=== PATIENT | female | born 1995 | race Caucasian/White ===

== ENCOUNTER 2021-02-06 20:37 | Emergency (ER) | payer OTHER ==
[~2021-02-06] VITALS: Ht 170.2 cm; Wt 118.2 kg
[~2021-02-06 20:37] MED LIST: HYDR-4061 PO
[2021-02-06] MEDS ORDERED: LORazepam 1 MG TABLET PO ONE (21:00)
[2021-02-06] MEDS ORDERED: PB/HYOSCY/ATR/SCOP/LIDO/MAALOX 55 ML BOTTLE PO ONE (21:00)
[2021-02-06 22:26] VITALS: BP 132/64
== END 2021-02-06 22:24 | disposition home or self-care (01) ==
LOC: EMS 20:39
DX: K21.9 Gastro-esophageal reflux disease without esophagitis (principal); F17.210 Nicotine dependence, cigarettes, uncomplicated
CPT/HCPCS: 99284; Z7502; Z7610